=== PATIENT | male | born 1935 | race Caucasian/White ===

== ENCOUNTER 2018-03-16 22:15 | Inpatient (IN) | payer OTHER, MEDICARE ==
[2018-03-16] MEDS ORDERED: NS 2,000 ML IV ONE (22:21)
[2018-03-16] MEDS ORDERED: ACETAMINOPHEN 500 MG TAB PO ONE (22:22)
--- NOTE | 2018-03-16 22:22 | EDPHY ---
H & P Time Seen by Provider: 03/16/18 22:22 HPI/ROS: HPI CHIEF COMPLAINT: Rigors HISTORY OF PRESENT ILLNESS: 82-year-old male, presents emergency room with chills, shaking, can't get warm, and fever here 38.1. This started approximately an hour ago areas at home and started shaking uncontrollably. This lasted approximately 45 min his called 911. He arrives to the emergency room febrile, however nontoxic appearing, is noted he is tachycardic. Blood pressure slightly low 100/90. Patient denies any complaints other than shaking. He has had a cough nonproductive. Denies chest pain. Denies shortness of breath. Denies nausea vomiting abdominal pain diarrhea. Past Medical History: Hypertension, hyperlipidemia, DVT, PE Past Surgical History: No recent surgery Social History: Denies drugs alcohol tobacco. Lives in a private residence in [place]. Family History: Noncontributory ROS REVIEW OF SYSTEMS: 10 Systems were reviewed and negative with the exception of the elements mentioned in the history of present illness. Exam Constitutional triage nursing summary reviewed, vital signs reviewed, awake/ alert. Eyes normal conjunctivae and sclera, EOMI, PERRLA. HENT normal inspection, atraumatic, moist mucus membranes, no epistaxis, neck supple/ no meningismus, no raccoon eyes. Respiratory clear to auscultation bilaterally, normal breath sounds, no respiratory distress, no wheezing. Cardiovascular rate normal, regular rhythm, no murmur, no edema, distal pulses normal. Gastrointestinal soft, non-tender, no rebound, no guarding, normal bowel sounds, no distension, no pulsatile mass. Genitourinary no CVA tenderness. Musculoskeletal no midline vertebral tenderness, full range of motion, no calf swelling, no tenderness of extremities, no meningismus, good pulses, neurovascularly intact. Skin pink, warm, & dry, no rash, skin atraumatic. Neurologic awake, alert and oriented x 3, AAOx3, moves all 4 extremities equally, motor intact, sensory intact, CN II-XII intact, normal cerebellar, normal vision, normal speech. Psychiatric normal mood/affect. Heme/Lymph/Immune no lymphadenopathy. Differential Diagnosis: But is not limited to in a particular order: Sepsis, bacteremia, dehydration, electrolyte disturbance, pneumonia, UTI, flu Medical Decision Making: Plan for this patient is noted be tachycardic, febrile 38.1, rigors will prefer seat with septic workup. IV fluids 2 L, Tylenol for fever control, blood cultures, lactate, EKG, chest x-ray influenza and re-evaluate. Re-evaluation: Initial lactic acid elevated. 2nd lactic acid after 2 L still elevated. Patient getting 3rd L at 12:00 a.m.. Heart rate is improving slowly. Chest x-ray, blood work reviewed. Urinalysis reviewed. Patient here with fever, elevated lactic acid unclear source. Due to the elevated lactic acid and borderline blood pressure patient has been given fluid resuscitation, additionally IV vancomycin IV Zosyn for broad- spectrum coverage. Patient had rigors concerning for bacteremia. Patient's D-dimer pending. Flu pending 1254AM: Labs reviewed. Negative flu, negative ua, CT Angio negative for pe or dense infiltrate. NO abdominal pain, no gi symptoms. Here with Fever, Rigors. Spoke with Dr. Thierry Saavedra who accepts admission. Admit to medicine for sepsis. Getting IV fluids, Broad spectrum ABx given Vanco /Zosyn. Blood cultures sent. Source: Patient, EMS Constitutional: Initial Vital Signs Temperature (C) 38.1 C 03/16/18 22:49 Heart Rate 112 H 03/16/18 22:49 Respiratory Rate 20 03/16/18 22:49 Blood Pressure 113/82 H 03/16/18 22:49 O2 Sat (%) 96 03/16/18 22:49 O2 Delivery Mode Room Air O2 (L/minute) 2 Allergies/Adverse Reactions: No Known Allergies Allergy (Unverified 03/16/18 22:30) Home Medications: Medication Instructions Recorded Aspirin [Aspirin 325 mg (*)] 325 mg PO DAILY 03/16/18 Clopidogrel Bisulfate [Plavix (*)] 75 mg PO DAILY 03/16/18 Levothyroxine [Synthroid 100 mcg 100 mcg PO DAILY06 03/16/18 (*)] Pravastatin Sodium [Pravachol] 20 mg PO DAILY 03/16/18 Cholecalciferol Vit D3 [Vitamin D3 1,000 units PO DAILY 03/17/18 (*)] Herbals/Supplements -Info Only 1 ea PO DAILY 03/17/18 Lisinopril [Lisinopril] 10 mg PO DAILY 03/17/18 Vit C/Dl-E AC/Lut/Copper/Znox 1 each PO BID 03/17/18 [Preservision Softgel] Medical Decision Making - Data Points Laboratory Results: Laboratory Results 03/17/18 03:55 03/17/18 11:45 Microbiology Results: MICROBIOLOGY 03/16/18 22:45 Blood Blood Culture - Preliminary 03/16/18 22:45 Blood Blood Panel (PCR) - Preliminary Pseudomonas Aeruginosa 03/16/18 23:20 Urine,Clean Catch Urine Culture - Preliminary 03/16/18 23:20 Nasal, Sinus - Swab Respiratory Panel (PCR) - Final No Organism Detected By Pcr Medications Given: Aspirin (Aspirin) 325 mg PO DAILY@1900 [facility] Stop: 09/13/18 18:59 Last Admin: 03/17/18 18:47 Dose: 325 mg Clopidogrel Bisulfate (Plavix) 75 mg PO DAILY@1900 [facility] Stop: 09/13/18 18:59 Last Admin: 03/17/18 18:47 Dose: 75 mg Enoxaparin Sodium (Lovenox) 40 mg SC DAILY [facility] Stop: 09/13/18 08:59 Last Admin: 03/17/18 10:02 Dose: 40 mg Piperacillin/Tazobactam/Dextrose (Zosyn 3.375 Gm (Premix)) 50 mls @ 100 mls/hr IV Q6HRS JOCELYN PRN Reason: Protocol Stop: 04/16/18 05:59 Last Admin: 03/18/18 00:10 Dose: 50 mls Sodium Chloride (Ns) 1,000 mls @ 100 mls/hr IV CONT [facility] Stop: 09/13/18 01:44 Last Admin: 03/17/18 22:07 Dose: 1,000 mls Norepinephrine 4 mg/ Sodium (Chloride) 504 mls @ 0 mls/hr IV CONT JOCELYN; Per Protocol PRN Reason: Protocol Stop: 09/13/18 03:59 Last Admin: 03/17/18 13:40 Dose: 504 mls Levofloxacin/Dextrose (Levaquin 750 Mg (Premix)) 150 mls @ 100 mls/hr IV ONCE ONE PRN Reason: Protocol Stop: 03/18/18 02:55 Last Admin: 03/18/18 01:58 Dose: 150 mls Levothyroxine Sodium (Synthroid) 100 mcg PO DAILY06 [facility] Stop: 09/13/18 12:44 Last Admin: 03/17/18 13:40 Dose: 100 mcg Multivitamins/Minerals (Preservision Areds2 Formula) 1 each PO BIDMEAL [facility] Stop: 09/13/18 17:59 Last Admin: 03/17/18 18:44 Dose: Not Given Pravastatin Sodium (Pravachol) 20 mg PO DAILY@1900 [facility] Stop: 09/13/18 18:59 Last Admin: 03/17/18 18:47 Dose: 20 mg Discontinued Medications Acetaminophen (Tylenol) 1,000 mg PO EDNOW ONE Stop: 03/16/18 22:23 Last Admin: 03/16/18 23:03 Dose: 1,000 mg Clopidogrel Bisulfate (Plavix) 75 mg PO DAILY [facility] Stop: 09/13/18 12:44 Last Admin: 03/17/18 14:06 Dose: Not Given Sodium Chloride (Ns) 2,000 mls @ 0 mls/hr IV EDNOW ONE; Wide Open PRN Reason: Protocol Stop: 03/16/18 22:22 Last Admin: 03/16/18 23:03 Dose: 2,000 mls Sodium Chloride (Ns) 500 mls @ 0 mls/hr IV ONCE ONE PRN Reason: Wide Open Stop: 03/16/18 23:24 Last Admin: 03/16/18 23:26 Dose: 500 mls Sodium Chloride (Ns) 1,000 mls @ 0 mls/hr IV ONCE ONE PRN Reason: Wide Open Stop: 03/17/18 00:03 Last Admin: 03/17/18 00:07 Dose: 1,000 mls Vancomycin/Sodium Chloride (Vancomycin 1 Gm (Premix)) 250 mls @ 250 mls/hr IV EDNOW ONE PRN Reason: Protocol Stop: 03/17/18 01:02 Last Admin: 03/17/18 00:12 Dose: 250 mls Piperacillin/Tazobactam/Dextrose (Zosyn (Premix)) 100 mls @ 200 mls/hr IV EDNOW ONE PRN Reason: Protocol Stop: 03/17/18 00:32 Last Admin: 03/17/18 02:12 Dose: 100 mls Sodium Chloride (Ns) 1,000 mls @ 0 mls/hr IV ONCE ONE PRN Reason: As Directed Stop: 03/17/18 03:01 Last Admin: 03/17/18 03:00 Dose: 1,000 mls Potassium Chloride (Potassium Cl 10 Meq (Premix)) 50 mls @ 100 mls/hr IV Q30M [facility] Stop: 03/17/18 06:44 Last Admin: 03/17/18 08:24 Dose: 50 mls Magnesium Sulfate/Dextrose (Magnesium Sulf 1 Gm (Premix)) 100 mls @ 100 mls/hr IV ONCE ONE Stop: 03/17/18 06:11 Last Admin: 03/17/18 05:22 Dose: 100 mls Vancomycin HCl 1.25 gm/ Sodium (Chloride) 250 mls @ 166.667 mls/hr IV DAILY AT 6PM [facility] Stop: 04/16/18 17:59 Last Admin: 03/17/18 19:24 Dose: 250 mls Potassium Chloride (Potassium Cl 20 Meq (Premix)) 50 mls @ 50 mls/hr IV ONCE ONE Stop: 03/17/18 20:05 Last Admin: 03/17/18 20:11 Dose: 50 mls Potassium Chloride (Potassium Cl 20 Meq (Premix)) 50 mls @ 50 mls/hr IV ONCE ONE Stop: 03/18/18 01:55 Last Admin: 03/18/18 01:06 Dose: 50 mls Ibuprofen (Motrin) 600 mg PO EDNOW ONE Stop: 03/16/18 23:16 Last Admin: 03/16/18 23:16 Dose: 600 mg Pravastatin Sodium (Pravachol) 20 mg PO DAILY [facility] Stop: 09/13/18 12:44 Last Admin: 03/17/18 14:07 Dose: Not Given Point of Care Test Results: Chemistry 03/16/18 22:47 POC Troponin I 0.01 ng/mL ng/mL (0.00-0.08) Departure - Departure Disposition: [facility] Inpatient Acute Clinical Impression: Rigors Fever Qualifiers: Fever type: unspecified Qualified Code(s): R50.9 - Fever, unspecified Condition: Fair
[2018-03-16 22:49] LABS: PLATELET COUNT 335 10^3/uL (150-400)
[2018-03-16] MEDS ORDERED: IBUPROFEN 600 MG TAB PO ONE ×2 (23:12→23:15)
[2018-03-16 23:18] LABS: INR 1.11 (0.83-1.16); PROTIME(PATIENT) 14.5 SEC (12.0-15.0)
[2018-03-16] MEDS ORDERED: NS 500 ML IV ONE (23:23)
[2018-03-17] MEDS ORDERED: NS 1,000 ML IV ONE (00:02)
[2018-03-17] MEDS ORDERED: VANCOMYCIN HCL/NORMAL SALINE 250 ML IV ONE (00:03)
[2018-03-17] MEDS ORDERED: PIPERACILLIN/TAZO 4.5 GM/DEX 100 ML IV ONE (00:03)
[2018-03-17] MEDS ORDERED: IOPAMIDOL (ISOVUE 370) 100 ML BTL IV ONE (00:20)
[2018-03-17] MEDS ORDERED: ONDANSETRON DISINTEGRATING 4 MG TAB PO PRN (00:44)
[2018-03-17] MEDS ORDERED: ONDANSETRON 4 MG/2 ML VIAL IVP PRN (00:44)
[2018-03-17] MEDS ORDERED: ACETAMINOPHEN 325 MG TAB PO PRN (00:44)
--- NOTE | 2018-03-17 01:29 | PDGENHP ---
History and Physical - Chief Complaint Chills - History of Present Illness 82 yo M w/ hx of HTN, hypothyroid, and DVT presents with fever and chills. The patient was in his usual state of excellent health until this afternoon. He suddenly began to feel fatigued, febrile, and developed shaking chills. This progressed over the course of the evening so EMS was called. In the ED the patient is displaying 4/4 SIRS criteria with low/normal blood pressures and elevated lactate. He denies all localizing symptoms of infection, he also denies sick contacts. CTPE was performed, which was negative for blood clot or infection. He is being admitted for management of sepsis without clear source. Case discussed with ED physician Dr. Lozano; records reviewed and summarized above. History Information - Allergies/Home Medication List Allergies/Adverse Reactions: No Known Allergies Allergy (Unverified 03/16/18 22:30) Home Medications: Aspirin 325 mg (*) 03/16/18 [Last Taken Unknown] Levothyroxine 03/16/18 [Last Taken Unknown] Lisinopril 03/16/18 [Last Taken Unknown] Plavix 03/16/18 [Last Taken Unknown] Pravastatin Sodium [Pravachol] 03/16/18 [Last Taken Unknown] I have personally reviewed and updated: family history, medical history - Past Medical History DVT, hypertension Additional medical history: Hypothyroid - Surgical History Reports: cholecystectomy - Family History Additional family history: VTE - Social History Smoking Status: Former smoker Review of Systems Review of Systems: ROS: 10pt was reviewed & negative except for what was stated in HPI & below Physical Exam Physical Exam: Temp Pulse Resp BP Pulse Ox 37.8 C 105 H 20 98/58 L 93 03/17/18 00:44 03/17/18 01:11 03/17/18 01:11 03/17/18 01:11 03/17/18 01:11 Constitutional: appears nourished, uncomfortable Eyes: PERRL, EOMI Ears, Nose, Mouth, Throat: moist mucous membranes, no oral mucosal ulcers Cardiovascular: no murmur, rub, or gallop, tachycardia Respiratory: no respiratory distress, clear to auscultation Gastrointestinal: normoactive bowel sounds, soft, non-tender abdomen Skin: warm, normal color Neurologic: AAOx3, CN II-XII Intact Psychiatric: interacting appropriately, not anxious Lab Data & Imaging Review 03/16/18 22:15 03/16/18 22:15 WBC 3.15 10^3/uL (3.80-9.50) L 03/16/18 22:15 RBC 4.43 10^6/uL (4.40-6.38) 03/16/18 22:15 Hgb 14.2 g/dL (13.7-17.5) 03/16/18 22:15 Hct 43.5 % (40.0-51.0) 03/16/18 22:15 MCV 98.2 fL (81.5-99.8) 03/16/18 22:15 MCH 32.1 pg (27.9-34.1) 03/16/18 22:15 MCHC 32.6 g/dL (32.4-36.7) 03/16/18 22:15 RDW 13.0 % (11.5-15.2) 03/16/18 22:15 Plt Count 335 10^3/uL (150-400) 03/16/18 22:15 MPV 8.4 fL (8.7-11.7) L 03/16/18 22:15 Neut % (Auto) 76.0 % (39.3-74.2) H 03/16/18 22:15 Lymph % (Auto) 22.5 % (15.0-45.0) 03/16/18 22:15 [place] % (Auto) 0.3 % (4.5-13.0) L 03/16/18 22:15 Eos % (Auto) 0.6 % (0.6-7.6) 03/16/18 22:15 Baso % (Auto) 0.3 % (0.3-1.7) 03/16/18 22:15 Nucleat RBC Rel Count 0.0 % (0.0-0.2) 03/16/18 22:15 Absolute Neuts (auto) 2.39 10^3/uL (1.70-6.50) 03/16/18 22:15 Absolute Lymphs (auto) 0.71 10^3/uL (1.00-3.00) L 03/16/18 22:15 Absolute Monos (auto) 0.01 10^3/uL (0.30-0.80) L 03/16/18 22:15 Absolute Eos (auto) 0.02 10^3/uL (0.03-0.40) L 03/16/18 22:15 Absolute Basos (auto) 0.01 10^3/uL (0.02-0.10) L 03/16/18 22:15 Absolute Nucleated RBC 0.00 10^3/uL (0-0.01) 03/16/18 22:15 Immature Gran % 0.3 % (0.0-1.1) 03/16/18 22:15 Immature Gran # 0.01 10^3/uL (0.00-0.10) 03/16/18 22:15 PT 14.5 SEC (12.0-15.0) 03/16/18 23:00 INR 1.11 (0.83-1.16) 03/16/18 23:00 APTT 25.0 SEC (23.0-38.0) 03/16/18 23:00 D-Dimer 7.20 ug/mLFEU (0.00-0.50) H 03/16/18 23:35 VBG Lactic Acid 2.8 mmol/L (0.7-2.1) H 03/16/18 23:35 Sodium 135 mEq/L (135-145) 03/16/18 22:15 Potassium 4.3 mEq/L (3.5-5.2) 03/16/18 22:15 Chloride 100 mEq/L (97-110) 03/16/18 22:15 Carbon Dioxide 24 mEq/l (22-31) 03/16/18 22:15 Anion Gap 11 mEq/L (6-14) 03/16/18 22:15 BUN 14 mg/dL (7-23) 03/16/18 22:15 Creatinine 0.9 mg/dL (0.7-1.3) 03/16/18 22:15 Estimated GFR > 60 03/16/18 22:15 Glucose 84 mg/dL (70-100) 03/16/18 22:15 Calcium 9.4 mg/dL (8.5-10.4) 03/16/18 22:15 Magnesium 1.8 mg/dL (1.6-2.3) 03/16/18 22:15 Total Bilirubin 0.6 mg/dL (0.1-1.4) 03/16/18 22:15 Conjugated Bilirubin 0.3 mg/dL (0.0-0.5) 03/16/18 22:15 Unconjugated Bilirubin 0.3 mg/dL (0.0-1.1) 03/16/18 22:15 AST 30 IU/L (17-59) 03/16/18 22:15 ALT 19 IU/L (21-72) L 03/16/18 22:15 Alkaline Phosphatase 135 IU/L (38-126) H 03/16/18 22:15 POC Troponin I 0.01 ng/mL (0.00-0.08) 03/16/18 22:47 NT-Pro-B Natriuret Pep 424 pg/mL (0-450) 03/16/18 22:15 Total Protein 7.1 g/dL (6.3-8.2) 03/16/18 22:15 Albumin 4.2 g/dL (3.5-5.0) 03/16/18 22:15 Lipase 51 IU/L (23-300) 03/16/18 22:15 Procalcitonin 0.06 ng/mL (0.02-0.10) 03/16/18 22:15 Urine Color PALE YELLOW 03/16/18 23:20 Urine Appearance HAZY 03/16/18 23:20 Urine pH 7.0 (5.0-7.5) 03/16/18 23:20 Ur Specific [place] 1.006 (1.002-1.030) 03/16/18 23:20 Urine Protein NEGATIVE (NEGATIVE) 03/16/18 23:20 Urine Ketones NEGATIVE (NEGATIVE) 03/16/18 23:20 Urine Blood 1+ (NEGATIVE) H 03/16/18 23:20 Urine Nitrate NEGATIVE (NEGATIVE) 03/16/18 23:20 Urine Bilirubin NEGATIVE (NEGATIVE) 03/16/18 23:20 Urine Urobilinogen NEGATIVE EU (0.2-1.0) 03/16/18 23:20 Ur Leukocyte Esterase NEGATIVE (NEGATIVE) 03/16/18 23:20 Urine RBC 1-3 /hpf (0-3) 03/16/18 23:20 Urine WBC 0-1 /hpf (0-3) 03/16/18 23:20 Ur Epithelial Cells NONE SEEN /lpf (NONE-1+) 03/16/18 23:20 Urine Glucose NEGATIVE (NEGATIVE) 03/16/18 23:20 Nasal Influenza A PCR NEGATIVE FOR FLU A (NEGATIVE) 03/16/18 23:20 Nasal Influenza B PCR NEGATIVE FOR FLU B (NEGATIVE) 03/16/18 23:20 Imaging Review: Imaging Impressions Chest X-Ray 03/16/18 22:21 Impression: Bibasilar atelectasis and possible small right pleural effusion. Chest/Thorax CTA 03/17/18 00:18 Impression: 1. No evidence of thrombopulmonary embolic disease. 2. Mild airways disease and mild bilateral pulmonary fibrosis. No pneumonia or edema. 3. Query asbestos related pleural disease evidenced by partially calcified pleural plaque and bibasilar pulmonary fibrosis. 4. Mild nonspecific mediastinal and hilar lymphadenopathy. 5. Three-vessel calcified coronary plaque. Findings discussed with Emergency Department physician, Luis Ortiz MD at 03/17/2018 0:43. Assessment & Plan Assessment: 82 yo M presents with sepsis of unclear etiology. Plan: 1. Sepsis - Unclear etiology; patient denies all localizing symptoms of infection. 4/4 SIRS criteria present on admission with elevated lactate. CTPE ( personally reviewed/interpreted) without evidence of clot or infection. UA is also not consistent with infection. Shaking chills and severity of systemic inflammatory response are concerning for possible bloodstream infection, although severe viral etiology is also a possibility. - Vancomycin, Zosyn for broad coverage initially - Blood/urine cultures, respiratory PCR ordered - Procalcitonin pending - Continue IVF noting persistent tachycardia (had already received 3.5 L so far) 2. HTN - On lisinopril 10 mg qD as outpatient; hold in setting of acute infection. 3. Hx DVT - In the remote past; no longer on AC but on Plavix. - Continue home meds pending reconciliation 4. Hypothyroid - Continue LTX Diet - Regular Code - Full Ppx - LMWH Dispo - Admit under observation status
[2018-03-17] MEDS: NS 1,000 ML IV SCH ×3 (02:11→22:07)
[2018-03-17] MEDS ORDERED: NS BOLUS 1000 ML IV ONE (03:00)
[2018-03-17] MEDS: NOREPINEPHRINE BITARTRATE 4 MG in NS 500 ML IV SCH ×2 (04:05→13:40)
[2018-03-17 04:17] LABS: PLATELET COUNT 203 10^3/uL (150-400)
[2018-03-17] MEDS ORDERED: PROTOCOL POTASSIUM 1 DOSE MISC PRN (04:58)
[2018-03-17] MEDS ORDERED: PROTOCOL MAGNESIUM 1 DOSE IV PRN (04:58)
[2018-03-17] MEDS ORDERED: MAGNESIUM SULF 1 GM/DEXTROSE 100 ML IV ONE (05:12)
--- NOTE | 2018-03-17 05:52 | POSTOPPROG ---
Post Op Note Date of Operation: 03/17/18 Surgeon: Brad Leyva Appliance Sales Associate: None Anesthesiologist: None Anesthesia: Local (Specify) (1% xylocaine) Pre-op Diagnosis: Sepsis Post-op Diagnosis: Same Procedure: Left internal jugular central line placement ultrasound-guided Findings: Good blood draw and flush in all 3 ports Inf/Abcess present in the surg proc area at time of surgery?: No Complications: None
--- NOTE | 2018-03-17 05:56 | SUROPNOTE ---
[facility] Operative Report - Surgery Date of procedure: 03/17/2018 Indications: This is an 82-year-old gentleman who presents to the hospital in extremities. Sepsis diagnosis has been given and he has been given 4 L of IV fluids vasopressin medications are to be started. Request for central line urgently. Preop diagnosis: sepsis Postop diagnosis: Same Procedure: Left internal jugular central line placement ultrasound-guided. Surgeon Autumn Anesthesia: 1% xylocaine plain Findings: Good draw & flush all 3 ports. Postprocedural chest x-ray without signs of complication no pneumothorax catheter at the right atrial superior vena cava junction. Details of the procedure: The patient was flat on his bed. His neck is prepped with chlorhexidine. Time- out procedures performed according institutional standards local anesthetic is infused in the skin and subcutaneous tissues and under ultrasound guidance the internal jugular vein is cannulated with an 18 gauge needle. Sterile Seldinger technique is used to maintain access and dilation of the tract is done prior to placing the 20 gauge triple-lumen catheter. The catheter secured at 17 cm. The patient has Biopatch placed and sterile dressing. The catheter ports are flushed with normal saline without difficulty. Post procedural chest x-ray was ordered in performed without signs of any complication.
[2018-03-17] MEDS: POTASSIUM Cl (KCl) 50 ML IV SCH ×3 (06:02→08:24)
[2018-03-17] MEDS: PIPERACILLIN/TAZO 3.375 GM/DEX 50 ML IV SCH ×3 (06:03→18:47)
[2018-03-17] MEDS: ENOXAPARIN 40 MG/0.4 ML SYR SC SCH (10:02)
[2018-03-17] MEDS ORDERED: PRAVASTATIN SODIUM 20 MG TAB PO SCH (12:45)
[2018-03-17] MEDS ORDERED: CLOPIDOGREL BISULFATE 75 MG TAB PO SCH (12:45)
[2018-03-17] MEDS: LEVOTHYROXINE 100 MCG TAB PO SCH (13:40)
--- NOTE | 2018-03-17 16:00 | HOSPPROG ---
Hospitalist Progress Note Assessment/Plan: 82 yo M with PMH of HTN, remote DVT presents with sepsis of unclear etiology. Plan: # Shock --presumably due to sepsis however source of sepsis not identified at this point, no localizing sxs prior to admission but was having significant rigors at home suspicious for bacteremia. Blood cultures pending, CTA without e/ o pna and no PE, UA not c/w infection, no skin sxs, resp PCR negative. Started on empiric abx with vanc/zosyn and patient appears to be responding with improvement in blood pressure, clearance of lactate and overall symptoms improving. Procalcitonin was low so possible that this is either viral or non infectious--will get repeat trop, echo, continue to monitor. # anemia: drop in h/h overnight presumably dilutional as patient did require aggressive fluid resuscitation, will continue to trend # htn: currently hypotensive, holding lisinopril # hx of DVT: remote, no longer on AC though it on asa/plavix for unclear reasons # CAD: noted on CTA, on asa/plavix as an OP but not clear that there was a prior hx of coronary disease known to patient, echo in am # hypothyroid: will continue lt4 and check tsh Diet - Regular Code - Full Ppx - LMWH Dispo - IP status, requiring pressors and ICU level care, > 40 min critical care time spent in evaluation of labs/imaging and bedside evaluation with patient and his family and coordination of care Subjective: no significant overnight events, patient is feeling much better, still no real localizing sxs, he has not had rigors this am Objective: Vital Signs Temp Pulse Resp BP Pulse Ox 36.8 C 52 L 16 97/54 L 98 03/17/18 13:00 03/17/18 15:00 03/17/18 15:00 03/17/18 15:00 03/17/18 15:00 Laboratory Results 03/17/18 03:55 03/17/18 11:45 03/16/18 03/17/18 03/18/18 05:59 05:59 05:59 Intake Total 6249.6 490 Output Total 550 700 Balance 5699.6 -210 PT 14.5 SEC (12.0-15.0) 03/16/18 23:00 INR 1.11 (0.83-1.16) 03/16/18 23:00 awake alert anicteric op clear rrr no mrg cta b soft nt nd no cce warm dry well perfused oriented appropriate ICD10 Worksheet Patient Problems: Problems Problem Status Onset Fever Acute Rigors Acute
--- NOTE | 2018-03-17 17:47 | ASMTCMCOM ---
CM Note CM Note Notes: Reviewed chart. Pt admitted for sudden onset of flu-like symptoms, sepsis. History includes HTN, DVT's, hypothyroid, chronic cough. Pt is and lives with his . He has a supportive dghtr. Met with pt and family - family provided a "My Emergency Info and Medical Directives" card. Copy of card placed in front of chart; additional copy sent to medical records. CM or staff can use contact numbers on card to obtain information about pt's medical history and advanced directives. For questions call or visit [facility] [employer]. Member # [id number]. Per ICU rounds, flu test negative. Pt found to have possible pulmonary fibrosis. Pt will likely discharge home independently when medically stable. No PT/OT orders. CM will continue to follow for any potential needs. Discharge Plan: Likely home independent with family support when stable Date Signed: 03/17/2018 05:47 PM Electronically Signed By:Juani Agarwal RN
--- NOTE | 2018-03-17 17:48 | GCON ---
PULMONARY/CRITICAL CARE CONSULTATION REFERRING PHYSICIAN: Shaylee Forbes MD REASON FOR REFERRAL: Evaluation and management of sepsis. HISTORY: The patient is an 82-year-old gentleman, who was in his usual state of good health when yesterday he began to feel fatigued and had a fever and chills. He suddenly got worse, and so EMS was called. He was admitted and met criteria for sepsis, including an elevated lactate and low blood pressures. A central line was placed, and he was started on IV fluids, as well as empiric antibiotics with Zosyn and vancomycin. He reports now that he feels much better. His strength is improved. He really did not have any localizing symptoms for a respiratory, urinary, or GI source but overall states that he is feeling improved with improved strength. PAST MEDICAL HISTORY: 1. DVT. 2. Hypertension. 3. Hypothyroid. MEDICATIONS AT THE TIME OF ADMISSION: Include aspirin, levothyroxine, lisinopril, Plavix, and pravastatin. ALLERGIES: None. SOCIAL HISTORY: The patient is a former smoker. FAMILY HISTORY: Positive for venous thromboembolism. REVIEW OF SYSTEMS: 10-point review of systems adds nothing to the History of Present Illness. PHYSICAL EXAMINATION: GENERAL: The patient is awake, alert, and in no acute distress. VITAL SIGNS: Blood pressure is 111/54, up from systolic blood pressures in the 70s to 80s. Heart rate is 54. He is afebrile currently. Had a temperature of 38.1 at admission. His CVP is 10. HEENT: Normocephalic and atraumatic. No icterus. NECK: No JVD. Trachea is midline. CHEST: Clear to auscultation. CARDIAC: Regular rate and rhythm without murmur. ABDOMEN: Soft , nontender. Bowel sounds are present. EXTREMITIES: No clubbing, cyanosis, or edema. NEURO: The patient is awake and alert. He has no gross motor or sensory deficits. LABORATORIES: White blood count is 10.4, up from 3.1 at admission. Hemoglobin is 10.4, down from 14.2 at admission. Chemistry group is unremarkable. AST and ALT are normal, and alkaline phosphatase is 135. An anion gap is 3. A procalcitonin is 0.06. A BNP is 424. D-dimer is 7.2, and arterial lactate is 2.1, down from 3.3 at admission. A urinalysis is negative. An influenza swab is negative. A respiratory panel is negative, and urine culture is negative. A CT scan of the chest shows no pulmonary embolism. There are no focal infiltrates. There is some mild bilateral pulmonary fibrosis. Images reviewed by me. ASSESSMENT: 1. Shock. This seems to be most likely due to sepsis with the low, then elevated white blood count, elevated lactate, and symptoms of fatigue with fevers/chills; however, no source of infection has been identified, and the patient does not have any localizing symptoms. The low procalcitonin would argue against a systemic bacterial infection. 2. Anemia. The patient's hemoglobin dropped overnight, most likely due to fluid resuscitation. 3. History of deep venous thrombosis. 4. History of coronary artery disease. 5. Hypothyroid. RECOMMENDATIONS: Continue empiric antibiotics. Vancomycin can be stopped if blood cultures are negative tomorrow and he could be transferred out soon after that if the patient continues to do well. The patient is starting to take p.o. , so IV fluids can be discontinued. An echocardiogram will be performed tomorrow to assess for a low ejection fraction or other causes of the patient's decompensation. /[id number]/MODL MTDD
[2018-03-17] MEDS ORDERED: VANCOMYCIN 1.25 GM in NS 250 ML IV SCH (18:00)
--- NOTE | 2018-03-17 18:32 | PDMN ---
Medical Necessity Medical necessity: Pt meets IP criteria as of 03/17/2018 per and TABBY. M-160 ( sepsis); est los > 2 mn for ongoing tx and management of sepsis with elevated lactate, tachycardia and hypotension.
[2018-03-17] MEDS: PRESERVISION AREDS2 FORMULA EYE VIT 1 EACH PO SCH (18:44)
[2018-03-17] MEDS: PRAVASTATIN SODIUM 20 MG TAB PO SCH (18:47)
[2018-03-17] MEDS: ASPIRIN 325 MG TAB PO SCH (18:47)
[2018-03-17] MEDS: CLOPIDOGREL BISULFATE 75 MG TAB PO SCH (18:47)
[2018-03-17] MEDS ORDERED: POTASSIUM Cl (KCl) 50 ML IV ONE (19:06)
[2018-03-18] MEDS: PIPERACILLIN/TAZO 3.375 GM/DEX 50 ML IV SCH ×5 (00:10→23:13)
[2018-03-18] MEDS ORDERED: POTASSIUM Cl (KCl) 50 ML IV ONE (00:56)
--- NOTE | 2018-03-18 01:28 | HOSPPROG ---
Hospitalist Progress Note Assessment/Plan: XC: Notified by lab of blood culture positive for Pseudomonas aeruginosa. Patient appropriately on Zosyn, but since he remains on vasopressors after 24 hours, I will provide single dose of levofloxacin for double coverage pending sensitivities and stop vancomycin. Objective: Vital Signs Temp Pulse Resp BP Pulse Ox 36.4 C 52 L 17 110/62 98 03/17/18 23:30 03/18/18 01:00 03/18/18 01:00 03/18/18 01:00 03/18/18 01:00 Laboratory Results 03/18/18 00:10 03/16/18 03/17/18 03/18/18 05:59 05:59 05:59 Intake Total 1964 Output Total 1325 Balance 639 PT 14.5 SEC (12.0-15.0) 03/16/18 23:00 INR 1.11 (0.83-1.16) 03/16/18 23:00 ICD10 Worksheet Patient Problems: Problems Problem Status Onset Fever Acute Rigors Acute
[2018-03-18 04:43] LABS: PLATELET COUNT 209 10^3/uL (150-400)
[2018-03-18] MEDS: LEVOTHYROXINE 100 MCG TAB PO SCH (05:31)
--- NOTE | 2018-03-18 07:44 | CPEKG ---
Test Reason : OPEN Blood Pressure : / mmHG Vent. Rate : 121 BPM Atrial Rate : 120 BPM P-R Int : 171 ms QRS Dur : 075 ms QT Int : 297 ms P-R-T Axes : 040 -49 -14 degrees QTc Int : 422 ms Sinus tachycardia LAD, consider left anterior fascicular block Low voltage, extremity leads Confirmed by Luis Ortiz ([id number]) on 03/18/2018 7:44:16 AM Referred By: Confirmed By:Luis Ortiz
[2018-03-18] MEDS: PRESERVISION AREDS2 FORMULA EYE VIT 1 EACH PO SCH ×2 (08:38→17:42)
[2018-03-18] MEDS: ENOXAPARIN 40 MG/0.4 ML SYR SC SCH (08:40)
[2018-03-18] MEDS: CHOLECALCIFEROL VIT D3 1,000 UNITS TAB PO SCH (08:40)
[2018-03-18] MEDS ORDERED: PROTOCOL K PHOSPHATE 1 DOSE IV PRN (09:30)
[2018-03-18] MEDS ORDERED: PROTOCOL CALCIUM 1 DOSE IV PRN (09:30)
[2018-03-18] MEDS ORDERED: K PHOS 10 MMOL in D5W 250 ML IV ONE (12:00)
--- NOTE | 2018-03-18 12:24 | GCON ---
INPATIENT INFECTIOUS DISEASE CONSULTATION REFERRING PHYSICIAN: Shaylee Forbes MD REASON FOR REFERRAL: Pseudomonal sepsis. HISTORY OF PRESENT ILLNESS: Patient is an 82-year-old man who is in a usual state of excellent healt h who became acutely ill in the late afternoon the evening of 03/16/2018. He was resting at home wit h his when he became quite fatigued and went to bed. Roughly an hour later, he began experienci ng uncontrollable rigors. 911 was called and he was brought to [facility] ro om febrile. He was tachycardic with a slight hypotension. Patient was resuscitated with intravenous fluids. Blood cultures drawn upon admission are growing Pseudomonas aeruginosa. Patient has no kno wn risk factors for the development of this condition. He has no indwelling urinary catheter. He morales s no significant lung disease. He has no gastrointestinal or biliary tract disorder. He was begun o n Zosyn monotherapy yesterday. His fevers have resolved since admission. Currently, he is sitting u p in a chair in his hospital room. He feels much improved. He denies any abdominal pain. Denies an y respiratory complaints. Denies urinary complaints. We are consulted to help with therapy througho ut his hospital stay and at discharge. PAST MEDICAL HISTORY: 1. Hypertension. 2. Hyperlipidemia. 3. History of multiple deep venous thromboses. 4. History of pulmonary embolus. PAST SURGICAL HISTORY: 1. Status post cholecystectomy. 2. Status post prostate surgery. ANTIBIOTICS: Zosyn. ALLERGIES: The patient has no known drug allergies. SOCIAL HISTORY: The patient denies any alcohol or tobacco use. He lives with his in [place] . He did work at [employer] for the better part of 30 years. He retired at age 53. FAMILY HISTORY: Reviewed, but noncontributory. REVIEW OF SYSTEMS: Other than that detailed above his present illness, comprehensive 10-system revie w is negative. PHYSICAL EXAMINATION: VITAL SIGNS: Temperature maximum 36.8, temperature current 36.6, heart rate i s 60, respiratory rate is 18, blood pressure 130/64. GENERAL: The patient is a well-formed, well-no urished elderly male in no acute distress. He is not toxic in appearance. He is alert and oriented x3. He has a pleasant demeanor. HEENT: Normocephalic for age. Atraumatic. No scleral icterus. N o oral lesion or drainage from the nares. Eyes lids and conjunctivae are within normal limits. Pupi ls are equal and round bilaterally. NECK: Supple. No meningismus. LUNGS: Clear to auscultation b ilaterally and with good effort. HEART: Regular rate and rhythm. No murmur, rub, or gallop noted. No significant peripheral edema. ABDOMEN: Soft, nontender. SKIN: Warm and dry to the touch. No rash or lesion. MUSCULOSKELETAL: No muscle belly tenderness is noted. No joint line effusion or ar thritis is seen. NEURO: Cranial nerves 2-12 seem to be intact. Peripheral sensation seems intact i n extremities. LABORATORY DATA: Patient has a CBC dated 03/18/2018, shows white blood cell count of 11.66, hemoglob in of 10.7, hematocrit of 32.6, and a platelet count of 209. Differential still shows left shift wit h 83.8% segmented neutrophils. Serum chemistries on 03/18/2018, show sodium 138, potassium 4.2, chlo ride of 117, bicarbonate of 20, BUN of 10, and creatinine of 0.8. AST is 48, ALT is 67, alkaline maria ines sphate is normal at 123, total bilirubin is normal at 0.4. Urinalysis from 03/16/2018, shows only 0- 1 white cells per high-power field. Nasal swabs on 03/16/2018, are negative for both flu A and flu B . MICROBIOLOGIC DATA: Patient has blood cultures dated 03/16/2018, 1/2 sets is growing Pseudomonas aer uginosa. Respiratory viral PCR panel on 03/16/2018, is negative. Urine culture on 03/16/2018, is no growth to date. RADIOLOGIC DATA: Chest CT dated 03/17/2018, shows no evidence of thrombosed pulmonary embolic diseas e, shows mild bilateral pulmonary fibrosis. Also shows mild nonspecific mediastinal and hilar lympha denopathy. Does show some 3-vessel coronary plaquing. ASSESSMENT: Pseudomonal bacteremia and sepsis, unclear source. Possibly gastrointestinal translocat ion without any other significant underlying defined disease. Plan to continue the Zosyn monotherapy as he has made significant clinical improvement on this. There is a 97% sensitivity coverage for ps eudomonal isolates at this hospital that are non-urinary for Zosyn. At this point, we will continue therapy and follow his sensitivity panel when they return. We will recheck his blood cultures in the next 24 hours. PLAN: 1. Continue Zosyn monotherapy as is. 2. Follow his clinical progress. 3. Follow up on pending laboratory and microbiology tests. /[id number]/MODL
--- NOTE | 2018-03-18 16:19 | ASMTCMCOM ---
CM Note CM Note Notes: CM discussed with RACHAEL Deal. Patient transfer from ICU, currently being treated for pseudomonal sepsis. Worked at [employer] <30 years. CM to follow. D/C plan: Likely independent. Date Signed: 03/18/2018 04:19 PM Electronically Signed By:Blanka Baker
--- NOTE | 2018-03-18 16:48 | HOSPPROG ---
Hospitalist Progress Note Assessment/Plan: 82 yo M with PMH of HTN, remote DVT presents with sepsis due to pseudomonas bacteremia. Plan: # septic shock --now resolved and off of pressors, due to next # pseudomonas bacteremia: source unclear, appreciate ID input, continue zosyn for now pending final s/s, repeat cultures tomorrow # anemia: drop in h/h initially dilutional and now stable # htn: had been holding lisinopril due to shock, will likely resume in am # hx of DVT: remote, no longer on AC though it on asa/plavix for unclear reasons # CAD: noted on CTA, on asa/plavix as an OP but not clear that there was a prior hx of coronary disease known to patient, echo in am # hypothyroid: will continue lt4, tsh wnl Diet - Regular Code - Full Ppx - LMWH Dispo - IP status Care plan reviewed with ID/pulmonary and patients family present at bedside Subjective: no significant overnight events, patient currently feeling much better, he has no new complaints Objective: Vital Signs Temp Pulse Resp BP Pulse Ox 38.7 C H 126 H 23 H 147/96 H 100 03/18/18 16:00 03/18/18 16:00 03/18/18 16:00 03/18/18 16:00 03/18/18 16:00 Laboratory Results 03/18/18 04:30 03/18/18 13:10 03/17/18 03/18/18 03/19/18 05:59 05:59 05:59 Intake Total 3833 1050 Output Total 2150 1100 Balance 1683 -50 PT 14.5 SEC (12.0-15.0) 03/16/18 23:00 INR 1.11 (0.83-1.16) 03/16/18 23:00 awake alert anicteric op clear rrr no mrg cta b soft nt nd no cce warm dry well perfused oriented appropriate ICD10 Worksheet Patient Problems: Problems Problem Status Onset Fever Acute Rigors Acute
[2018-03-18] MEDS: NS 1,000 ML IV SCH (17:34)
[2018-03-18] MEDS: PRAVASTATIN SODIUM 20 MG TAB PO SCH (17:42)
[2018-03-18] MEDS: ASPIRIN 325 MG TAB PO SCH (17:42)
[2018-03-18] MEDS: CLOPIDOGREL BISULFATE 75 MG TAB PO SCH (17:42)
[2018-03-19 04:56] LABS: PLATELET COUNT 212 10^3/uL (150-400)
[2018-03-19] MEDS: NS 1,000 ML IV SCH ×2 (05:11→16:32)
[2018-03-19] MEDS: PIPERACILLIN/TAZO 3.375 GM/DEX 50 ML IV SCH ×2 (07:03→11:01)
[2018-03-19] MEDS: LEVOTHYROXINE 100 MCG TAB PO SCH (07:03)
[2018-03-19] MEDS ORDERED: CALCIUM GLUCONATE 1 GM in D5W 50 ML IV ONE (07:30)
--- NOTE | 2018-03-19 08:54 | ECHO ---
[email or web address] [address] [address] Main: [phone] Fax: Transthoracic Echocardiogram Name: KERRY JULES MR#: [id number] Study Date: 03/18/2018 Study Time: 09:41 AM Date of : 1935 Age: 82 year(s) Height: 172.7 cm (68 in.) Weight: 70.76 kg (156 lb.) BSA: 1.84 m2 Gender: Male Examination: Echo Indication: Shock/no clear e/o infection/question heart dysfunction Image Quality: Technically Difficult Contrast: Requested by: Shaylee Forbes BP: 120 mmHg/66 mmHg Heart Rate: Rhythm: Indication: Shock/no clear e/o infection/question heart dysfunction Procedure Staff Painting Instructor: Fiordaliza Zepeda RDCS Reading Physician: Ely Lopez MD Requesting Provider: Conclusions: Normal size left ventricle. No LV hypertrophy. Normal global systolic LV function. The ejection fraction is estimated to be 60-65 %. No regional wall motion abnormality. Mildly dilated right ventricle. Normal RV function. Trivial mitral valve regurgitation. The aortic valve is normal in appearance and function. AV opens well.. Mild tricuspid regurgitation is present. RVSP is 35mmHG.. No pericardial effusion. There is no previous echocardiogram for comparison. Measurements: Chambers Valvular Assessment AV/MV Valvular Assessment TV/PV Normal Normal Normal Name Value Range Name Value Range Name Value Range Ao Amberly (MM): 3.5 cm (2.2 cm-3.7 AV Vmax: 1.14 m/s (1 m/s-1.7 TR Vmax: 2.74 mm/s ( - ) cm) m/s) TR PGmax: 30 mmHg ( - ) IVSd (2D): 0.8 cm (0.6 cm-1.1 AV meanP mmHg ( - ) syst. PAP: 35 mmHg ( - ) cm) MV E Vmax: 0.81 m/s ( - ) LVDd (2D): 4.2 cm (4.2 cm-5.9 MV A Vmax: 0.88 m/s ( - ) cm) MV E/A: 0.92 ( - ) LVPWd (2D): 0.6 cm (0.6 cm-1 cm) EF Range: 60-65 % Patient: KERRY JULES Study Date: 03/18/2018 Page 1 of 2 09:41 AM Continued Measurements: Chambers Valvular Assessment AV/MV Valvular Assessment TV/PV Name Value Name Value Name Value LADs: 3.5 cm MV E' Septal: 0.08 m/s CVP (est.): 5 mmHg LADs Lon.5 cm MV E/E' Septal: 10.00 LA Area: 17.8 cm2 MV E/E' Lateral: 10.20 Findings: Left Ventricle: Normal size left ventricle. No LV hypertrophy. Normal global systolic LV function. The ejection fraction is estimated to be 60-65 %. No regional wall motion abnormality. Right Ventricle: Mildly dilated right ventricle. Normal RV function. Left Atrium: The left atrium is normal in size. Right Atrium: The right atrium is normal in size. Mitral Valve: The mitral valve is normal in appearance and function. Trivial mitral valve regurgitation. Aortic Valve: The aortic valve is normal in appearance and function. AV opens well.. Tricuspid Valve: The tricuspid valve is normal in appearance and function. Mild tricuspid regurgitation is present. RVSP is 35mmHG.. Pulmonic Valve: Pulmonary valve not well visualized. Aorta: The aorta is normal. Pericardium: No pericardial effusion. (No Signature Object) Patient: KERRY JULES Study Date: 03/18/2018 Page 2 of 2 09:41 AM [id number]
[2018-03-19] MEDS ORDERED: CALCIUM GLUCONATE 50 ML IV ONE (09:00)
[2018-03-19] MEDS: ENOXAPARIN 40 MG/0.4 ML SYR SC SCH (09:20)
[2018-03-19] MEDS: PRESERVISION AREDS2 FORMULA EYE VIT 1 EACH PO SCH ×2 (09:20→18:01)
[2018-03-19] MEDS: CHOLECALCIFEROL VIT D3 1,000 UNITS TAB PO SCH (09:20)
[2018-03-19] MEDS ORDERED: POTASSIUM CL 10 MEQ TAB PO ONE ×2 (09:56→19:10)
--- NOTE | 2018-03-19 15:04 | HOSPPROG ---
Hospitalist Progress Note Assessment/Plan: 82 yo M with PMH of HTN, remote DVT presents with sepsis due to pseudomonas bacteremia. Plan: # septic shock --now resolved and off of pressors, due to next # pseudomonas bacteremia: source unclear, appreciate ID input, started on zosyn with sensitivities showing intermediate sensitivity to zosyn--switched to merrem for now, repeat cultures pending, appreciate ID input # anemia: drop in h/h initially dilutional and now stable # htn: had been holding lisinopril due to shock, will resume in am # hx of DVT: remote, no longer on AC # ? CAD: noted on CTA, mildly increased trop, echo showing normal function, no significant valvular disease # hypothyroid: will continue lt4, tsh wnl Diet - Regular Code - Full Ppx - LMWH Dispo - IP status Care plan reviewed with patients family present at bedside Subjective: no significant overnight events, patient notes that he is doing well , has been walking independently Objective: Vital Signs Temp Pulse Resp BP Pulse Ox 36.9 C 67 16 143/86 H 94 03/19/18 07:33 03/19/18 07:33 03/19/18 07:33 03/19/18 07:33 03/19/18 07:33 Laboratory Results 03/19/18 04:40 03/19/18 11:50 03/18/18 03/19/18 03/20/18 05:59 05:59 05:59 Intake Total 3833 3140 192 Output Total 2150 2625 Balance 1683 515 192 PT 14.5 SEC (12.0-15.0) 03/16/18 23:00 INR 1.11 (0.83-1.16) 03/16/18 23:00 awake alert anicteric op clear rrr no mrg cta b soft nt nd no cce warm dry well perfused oriented appropriate ICD10 Worksheet Patient Problems: Problems Problem Status Onset Fever Acute Rigors Acute
[2018-03-19] MEDS ORDERED: MEROPENEM 1 GM in NS 100 ML IV SCH ×2 (16:49→22:00)
[2018-03-19] MEDS: MEROPENEM 1 GM in NS 100 ML IV SCH (17:12)
[2018-03-19] MEDS: PRAVASTATIN SODIUM 20 MG TAB PO SCH (18:01)
[2018-03-19] MEDS: ASPIRIN 325 MG TAB PO SCH (18:01)
[2018-03-19] MEDS: CLOPIDOGREL BISULFATE 75 MG TAB PO SCH (18:01)
--- NOTE | 2018-03-19 18:07 | PCMIDPN ---
Assessment/Plan: Assessment/Plan: * Pseudomonas aeruginosa bacteremia: Unclear etiology for bacteremia with considerations including GI or source. No symptoms of urinary tract infection, negative urine culture, and lack of pyuria argue against urinary etiology however. Will proceed with CT scan of abdomen and pelvis to assess for GI etiology. Pseudomonal isolate is intermediately susceptible to Zosyn - agree with change of therapy from Zosyn to meropenem based on susceptibility findings. Isolate is susceptible to fluoroquinolones which can be discussed as potential oral treatment option once clinically improved recognizing potential for side effects in elderly population. Follow up repeat blood cultures which were obtained due to patient's recurrent fever. Time spent, greater than 35 min, of which greater than half was spent in education/counseling/coordination of care related to Pseudomonas aeruginosa bacteremia including modification of antibiotic therapy, discussion of ongoing antibiotic therapy, and plan of care including CT scan of abdomen and pelvis. 03/19/18 18:04 03/19/18 18:05 03/19/18 18:09 Subjective: Patient overall feels significantly improved. No nausea, vomiting, diarrhea or urinary tract symptoms. No cough or shortness of breath. Objective: Vital Signs Temp Pulse Resp BP Pulse Ox 36.9 C 71 16 134/77 H 96 03/19/18 16:00 03/19/18 16:00 03/19/18 16:00 03/19/18 16:00 03/19/18 16:00 Laboratory Results 03/19/18 04:40 03/19/18 11:50 03/18/18 03/19/18 03/20/18 05:59 05:59 05:59 Intake Total 3833 3140 192 Output Total 2150 2625 Balance 1683 515 192 Zosyn # 3 Blood cultures 03/16/2018 1/2 sets Pseudomonas aeruginosa intermediately susceptible to Zosyn; susceptible to levofloxacin and meropenem Blood cultures 03/18/2018 pending Urine culture with 2 colony types at low CFU T-max 38.7 degrees - Physical Exam General Appearance: alert, no apparent distress, non-toxic EENT: No scleral icterus, No thrush Respiratory: lungs clear, No respiratory distress Cardiac/Chest: regular rate, rhythm Extremities: No inflammation Abdomen: non-tender, No distended Skin: No embolic lesions Neuro/Psych: No confused ICD10 Worksheet Patient Problems: Problems Problem Status Onset Fever Acute Rigors Acute
[2018-03-20] MEDS: MEROPENEM 1 GM in NS 100 ML IV SCH ×3 (01:38→16:24)
[2018-03-20] MEDS: LISINOPRIL 10 MG TAB PO SCH (06:59)
[2018-03-20] MEDS: LEVOTHYROXINE 100 MCG TAB PO SCH (06:59)
[2018-03-20] MEDS: CHOLECALCIFEROL VIT D3 1,000 UNITS TAB PO SCH (09:50)
[2018-03-20] MEDS: PRESERVISION AREDS2 FORMULA EYE VIT 1 EACH PO SCH ×2 (09:50→18:02)
[2018-03-20] MEDS: ENOXAPARIN 40 MG/0.4 ML SYR SC SCH (09:50)
[2018-03-20] MEDS ORDERED: MAGNESIUM SULF 1 GM/DEXTROSE 100 ML IV ONE (10:18)
[2018-03-20] MEDS ORDERED: POTASSIUM CL 10 MEQ TAB PO ONE ×2 (10:19→21:14)
--- NOTE | 2018-03-20 11:26 | PCMIDPN ---
Assessment/Plan: #Sepsis: much improved. L IJ dressing falling off. --replace dressing, query placement of PIV w RN and possible dc central line soon #PsA bacteremia, unclear source. UA unremarkable. Responding to therapy, feeling stronger and normalization of wbc --awaiting CT, now with some loose stool, query diverticulitis as source --continue meropenem based on susceptibilities, may be able to transition to FQ , hold off on PICC line placement meds meropenem 1gm IV q8h #1 micro 03/16 blood cx 03/14 PsA: R to cefepime; intermediate to Zosyn; S: levoflox, meropenem Ucx: 1999 mixed Resp PCR neg 03/19 blood cx (2) pending Subjective: feeling much stronger no abdominal pain multiple BMs, soft Objective: Vital Signs Temp Pulse Resp BP Pulse Ox 36.9 C 65 16 149/78 H 98 03/20/18 06:55 03/20/18 06:55 03/20/18 06:55 03/20/18 06:55 03/20/18 06:55 Laboratory Results 03/19/18 04:40 03/20/18 02:45 03/19/18 03/20/18 03/21/18 05:59 05:59 05:59 Intake Total 3140 1713 Output Total 2625 1150 400 Balance 515 563 -400 - Physical Exam General Appearance: alert, no apparent distress, non-toxic EENT: pale conjunctiva, No scleral icterus, No thrush Respiratory: lungs clear, No accessory muscle use Cardiac/Chest: regular rate, rhythm, No systolic murmur Extremities: No pedal edema Abdomen: normal bowel sounds, non-tender, soft, distended, No guarding, No peritoneal signs Male Genitalia: No young Skin: No rash Neuro/Psych: alert, normal mood/affect, oriented x 3 - Line/s other Lines: other (L IJ TLC with dressing falling off), No drainage, No erythema - Time Spent With Patient Time Spent with Patient: greater than 35 minutes Time Spent with Patient: Greater than 35 minutes spent on this patients care, greater than 50% of time spent counseling, educating, and coordinating care regarding the above mentioned plan. ICD10 Worksheet Patient Problems: Problems Problem Status Onset Fever Acute Rigors Acute
[2018-03-20] MEDS ORDERED: IOPAMIDOL (ISOVUE 370) 100 ML BTL IV ONE (13:20)
--- NOTE | 2018-03-20 17:52 | HOSPPROG ---
Hospitalist Progress Note Assessment/Plan: * Septic shock s/p pressors * Pseudomonas bacteremia -IV meropenum -probably okay for DC home on PO levaquin -d/w Dr. Cheatham -CT abd/pelvis negative for source * CAD -ASA/Plavix + statin * HTN -back on lisinopril Subjective: Feels well Objective: Vital Signs Temp Pulse Resp BP Pulse Ox 36.4 C 68 16 130/82 H 95 03/20/18 16:00 03/20/18 16:00 03/20/18 16:00 03/20/18 16:00 03/20/18 16:00 Laboratory Results 03/19/18 04:40 03/20/18 02:45 03/19/18 03/20/18 03/21/18 05:59 05:59 05:59 Intake Total 3140 1713 Output Total 2625 1150 1100 Balance 515 563 -1100 PT 14.5 SEC (12.0-15.0) 03/16/18 23:00 INR 1.11 (0.83-1.16) 03/16/18 23:00 CT chest - no PE CT abd - negative - Physical Exam Constitutional: no apparent distress, appears nourished, not in pain Cardiovascular: regular rate and rhythym, no murmur, rub, or gallop Respiratory: no respiratory distress, no rales or rhonchi, clear to auscultation Gastrointestinal: normoactive bowel sounds, soft, non-tender abdomen, no palpable masses Skin: no rashes or abrasions, no fluctuance, no induration Neurologic: AAOx3, sensation intact bilaterally Psychiatric: interacting appropriately, not anxious, not encephalopathic, thought process linear ICD10 Worksheet Patient Problems: Problems Problem Status Onset Fever Acute Rigors Acute
[2018-03-20] MEDS: CLOPIDOGREL BISULFATE 75 MG TAB PO SCH (18:03)
[2018-03-20] MEDS: PRAVASTATIN SODIUM 20 MG TAB PO SCH (18:03)
[2018-03-21] MEDS: MEROPENEM 1 GM in NS 100 ML IV SCH ×3 (01:01→16:06)
[2018-03-21] MEDS ORDERED: CALCIUM GLUCONATE 50 ML IV ONE (07:55)
[2018-03-21] MEDS ORDERED: CALCIUM GLUCONATE 1 GM in D5W 50 ML IV ONE (08:00)
[2018-03-21] MEDS: LEVOTHYROXINE 100 MCG TAB PO SCH (08:16)
[2018-03-21] MEDS: LISINOPRIL 10 MG TAB PO SCH (08:16)
[2018-03-21] MEDS: CHOLECALCIFEROL VIT D3 1,000 UNITS TAB PO SCH (08:16)
[2018-03-21] MEDS: ENOXAPARIN 40 MG/0.4 ML SYR SC SCH (08:16)
[2018-03-21] MEDS: PRESERVISION AREDS2 FORMULA EYE VIT 1 EACH PO SCH (08:16)
[2018-03-21] MEDS ORDERED: ASPIRIN 325 MG TAB PO SCH (09:00)
--- NOTE | 2018-03-21 12:03 | ASMTCMCOM ---
CM Note CM Note Notes: Pts case discussed w/ Dr. Bean. Pt will most likely d/c independent when medically stable. Pt will most likely switch over to po antibiotics. CM available for changes. Plan: Independent Date Signed: 03/21/2018 12:02 PM Electronically Signed By:ANICETO Bonner
--- NOTE | 2018-03-21 13:48 | PCMIDPN ---
Assessment/Plan: #Sepsis:resolved #PsA bacteremia, unclear source. UA unremarkable. CT neg --7 more days levofloxacin 750mg PO daily --follow up in ID clinic 10-14days, patient given instructions --dc central line before discharge meds meropenem 1gm IV q8h #2 micro 03/16 blood cx 03/14 PsA: R to cefepime; intermediate to Zosyn; S: levoflox, meropenem Ucx: 2000 mixed Resp PCR neg 03/19 blood cx (2) NGTD Subjective: feeling back to baseline no diarrhea energy better Objective: Vital Signs Temp Pulse Resp BP Pulse Ox 36.9 C 99 18 131/78 H 94 03/21/18 08:00 03/21/18 08:00 03/21/18 08:00 03/21/18 08:00 03/21/18 08:00 Laboratory Results 03/19/18 04:40 03/21/18 06:22 03/20/18 03/21/18 03/22/18 05:59 05:59 05:59 Intake Total 1713 1675 Output Total 1150 1100 Balance 563 575 - Physical Exam General Appearance: alert, no apparent distress Respiratory: No accessory muscle use Abdomen: normal bowel sounds, non-tender, soft Skin: No rash Neuro/Psych: alert, normal mood/affect, oriented x 3 - Line/s other Lines: other (L central line; IJ position), No drainage, No erythema - Time Spent With Patient Time Spent with Patient: greater than 35 minutes (reviewed risk factors of levofloxacin extensively: arrythmia, AMS, aortic dissection, tendonpathy/ separation, rash, diarrhea, interaction with Ca/Mg/Zn, neuropathy) Time Spent with Patient: Greater than 35 minutes spent on this patients care, greater than 50% of time spent counseling, educating, and coordinating care regarding the above mentioned plan. ICD10 Worksheet Patient Problems: Problems Problem Status Onset Fever Acute Rigors Acute
[2018-03-21 15:44] VITALS: BP 150/77
--- NOTE | 2018-03-21 18:15 | GDS ---
DISCHARGE DIAGNOSES: 1. Septic shock. Status post pressors. 2. Pseudomonas bacteremia of unclear origin. 3. Coronary artery disease. 4. Hypertension. HISTORY: This is an 82-year-old male, who presented with septic shock requiring pressors in the ICU. Blood cultures grew Pseudomonas. Original source of infection was not clear. He had a CT scan of the abdomen pelvis that was negative. His urinalysis was negative. Infectious Disease was following . He was treated with IV meropenem throughout his hospitalization. Pseudomonas is sensitive to Leva yamil and the risks and benefits of oral Levaquin therapy were discussed with the patient by Dr. Philipp ragsdale and he does wish to proceed with oral Levaquin for 7 more days rather than going home on IV antibio tics. DISCHARGE MEDICATIONS: Please see computerized record for full detailed list. New medications: Leva yamil 750 mg p.o. daily for 7 more days. ADDITIONAL DISCHARGE INSTRUCTIONS: Follow up with Dr. Jacklyn Alcantara in 10 days. Greater than 30 minutes' time spent arranging this discharge. Patient seen and examined by me on day of discharge. /[id number]/MODL
== END 2018-03-21 18:04 | disposition home or self-care (01) | DRG 871 ==
LOC: EDBD 22:15 → F2N 03-17 01:30 → OBSVTOIN 03-17 15:56 → F3E 03-18 15:57
PROVIDERS: ADMIT Student in an Organized Health Care Education/Training Program; ATTEND Student in an Organized Health Care Education/Training Program
PROC: 02HV33Z Insertion of Infusion Device into Superior Vena Cava, Percutaneous Approach (ICD-10-PCS; principal; 2018-03-17)
DX: A41.52 Sepsis due to Pseudomonas (principal); R65.21 Severe sepsis with septic shock; I10 Essential (primary) hypertension; D64.9 Anemia, unspecified; E78.5 Hyperlipidemia, unspecified; E03.9 Hypothyroidism, unspecified; I25.10 Atherosclerotic heart disease of native coronary artery without angina pectoris; Z87.891 Personal history of nicotine dependence; Z86.718 Personal history of other venous thrombosis and embolism; Z86.711 Personal history of pulmonary embolism
CPT/HCPCS: 84484-ER; 96365; 97116-GP; 97161-GP; 97165-GO; 97530-GO; 97535-GO; J0610; J1650; J1956; J2185; J2543; J3370; J3475; J3480; Q9967